=== PATIENT | male | born 1990 | race Caucasian/White ===

== ENCOUNTER 2018-07-18 23:13 | Emergency (ER) | payer OTHER ==
[2018-07-18 23:36] VITALS: TEMP 98.1
[2018-07-19] MEDS ORDERED: Tdap Vaccine 0.5 ml Vial (10-64 yrs) IM ONE ×2 (00:25→00:43)
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
[2018-07-19 01:06] VITALS: BP 138/89; PULSE 84; RESP 16
[2018-07-19 03:37] VITALS: O2SAT 97
== END 2018-07-19 01:14 | disposition home or self-care (01) ==
LOC: C.ER 23:13
DX: S50.812A Abrasion of left forearm, initial encounter (principal); S50.811A Abrasion of right forearm, initial encounter; V89.2XXA Person injured in unspecified motor-vehicle accident, traffic, initial encounter